=== PATIENT | male | born 1925 | race Asian ===

== ENCOUNTER 2016-05-26 13:24 | Inpatient (IN) | payer MEDICARE, OTHER ==
[~2016-05-26] VITALS: Ht 165.1 cm; Wt 61.6 kg
[2016-05-26] MEDS ORDERED: DORZ210OS OU (13:44)
[2016-05-26] MEDS ORDERED: TEMO15C TP (13:44)
[2016-05-26] MEDS ORDERED: CARB4OS OU (13:44)
[2016-05-26] MEDS ORDERED: MELA3 PO (13:44)
[2016-05-26] MEDS ORDERED: TELM40 PO (13:44)
[2016-05-26] MEDS ORDERED: FINA5TAB41 PO (13:44)
[2016-05-26] MEDS ORDERED: ATOR20TA86 PO (13:44)
[2016-05-26] MEDS ORDERED: LANO3.5O OU (13:44)
[2016-05-26] MEDS ORDERED: XALA2.5OS OU (13:44)
[2016-05-26] MEDS ORDERED: ASCO500 PO (13:44)
[2016-05-26] MEDS ORDERED: DIGO125T PO (13:44)
[2016-05-26] MEDS ORDERED: TAMS0.4C32 PO (13:44)
[2016-05-26] MEDS ORDERED: METF500T4 PO (13:44)
[2016-05-26] MEDS ORDERED: BRIM15OS OU (13:44)
[2016-05-26] MEDS ORDERED: DILT60 PO (13:44)
[2016-05-26] MEDS ORDERED: WARF2 PO (13:44)
[2016-05-26] MEDS ORDERED: VITAD1000 PO (13:44)
[2016-05-26] MEDS ORDERED: [UNRECOGNIZED DRUG - CODE] IARTIC (13:44)
[2016-05-26] MEDS ORDERED: ACET-2247 PO (13:44)
[2016-05-26] MEDS ORDERED: OMEP20 PO (13:44)
[2016-05-26 14:03] LABS: BASOPHILS % (AUTO) 0.3 % (0.0-2.0); EOSINOPHILS % (AUTO) 1.2 % (1.0-6.0); HEMATOCRIT 40.3 % (41-53); HEMOGLOBIN 13.2 g/dL (13.5-17.5); LYMPHOCYTES # (AUTO) 1.8 K/uL (1.0-4.8); LYMPHOCYTES % (AUTO) 21.4 % (22.0-44.0); MEAN CORPUSCULAR HEMOGLOBIN 31.8 pg (26.0-34.0); MEAN CORPUSCULAR HGB CONC 32.7 G/dL (31.0-37.0); MEAN CORPUSCULAR VOLUME 97 fL (80-100); MONOCYTES # (AUTO) 1.5 K/uL (0.1-1.0); MONOCYTES % (AUTO) 17.9 % (2.0-9.0); NEUTROPHILS % (AUTO) 59.2 % (40.0-70.0); PLATELET COUNT (AUTO) 263 K/uL (150-450); RED BLOOD CELL COUNT(AUTO) 4.14 MIL/uL (4.50-5.90); RED CELL DISTRIBUTION WIDTH 13.7 % (11.5-14.5); WHITE BLOOD COUNT (AUTO) 8.5 K/uL (4.5-11.0)
[2016-05-26 14:15] LABS: ANION GAP 8 mmol/L (8-16); CALCIUM, TOTAL 9.1 mg/dL (8.8-10.5); CARBON DIOXIDE 29 mmol/L (22-29); CHLORIDE 103 mmol/L (98-107); CREATININE 1.24 mg/dL (0.60-1.30); GLOMERULAR FILTR. RATE CALC 55 mL/min (>60); POTASSIUM 4.6 mmol/L (3.5-5.1); SODIUM SERUM 140 mmol/L (136-145); UREA NITROGEN, BLOOD 20 mg/dL (7-18)
[2016-05-26 14:16] LABS: INR 2.4 (0.9-1.1); PROTHROMBIN TIME 25.1 SEC (9.4-11.6)
[2016-05-26 14:20] LABS: ALANINE AMINOTRANSFERASE 26 U/L (12-78); ASPARTATE AMINOTRANSFERASE 19 U/L (15-37); BILIRUBIN,TOTAL 0.6 mg/dL (0.1-1.0); CREATINE KINASE, TOTAL 63 U/L (39-308); TOTAL PROTEIN, SERUM 7.5 g/dL (6.4-8.2)
[2016-05-26 14:23] LABS: AMMONIA 20 umol/L (11-32)
[2016-05-26 14:24] LABS: LACTIC ACID 1.7 mmol/L (0.4-2.0)
[2016-05-26 14:30] LABS: TROPONIN I < 0.02 ng/mL (0.00-0.05)
[2016-05-26] MEDS ORDERED: SODIUM CHLORIDE 0.9% 1,000 ML IV ONE (14:45)
[2016-05-26 15:10] LABS: APPEARANCE,URINE CLEAR (CLEAR); GLUCOSE, URINE (UA) NEGATIVE (NEGATIVE); KETONES,URINE TRACE mg/dL (NEGATIVE); LEUKOCYTE ESTERASE ,URINE TRACE (NEGATIVE); OCCULT BLOOD,URINE NEGATIVE (NEGATIVE); PROTEIN,URINE POS 1+ (NEGATIVE)
[2016-05-26 15:11] LABS: ADD UA MICROSCOPIC YES
[2016-05-26 15:17] LABS: RBC,URINE 0-2 /HPF (0-2); SQUAMOUS EPITHELIAL CELL,UR Few /LPF (None Seen)
[2016-05-26] MEDS ORDERED: 0.9% SODIUM CHLORIDE 10 ML SYRINGE IVP PRN (17:15)
[2016-05-26] MEDS ORDERED: ONDANSETRON HCL 4 MG/2 ML VIAL IVP PRN (17:15)
[2016-05-26] MEDS ORDERED: ACETAMINOPHEN 325 MG TABLET PO PRN (17:15)
[2016-05-26] MEDS ORDERED: MELA5TAB3 PO (17:15)
[2016-05-26 19:59] VITALS: BP 130/90
[2016-05-27 00:08] VITALS: BP 134/68
[2016-05-27] MEDS ORDERED: OxyCODONE HCL/ACETAMINOPHEN 5-325 MG TABLET PO PRN ×2 (05:00)
[2016-05-27] MEDS ORDERED: ONDANSETRON HCL 4 MG/2 ML VIAL IVP PRN (05:00)
[2016-05-27] MEDS ORDERED: MAGNESIUM HYDROXIDE SUSPENSION 30 ML UDCUP PO PRN (05:00)
[2016-05-27] MEDS ORDERED: 0.9% SODIUM CHLORIDE 10 ML SYRINGE IVP PRN (05:00)
[2016-05-27] MEDS ORDERED: ACETAMINOPHEN 325 MG TABLET PO PRN ×2 (05:00)
[2016-05-27 05:16] VITALS: BP 130/74
[2016-05-27] MEDS: SODIUM CHLORIDE 0.9% 1,000 ML IV SCH ×2 (06:12→15:16)
[2016-05-27 08:12] VITALS: BP 144/78
[2016-05-27] MEDS ORDERED: OMEPRAZOLE 20 MG CAPSULE PO SCH (09:00)
[2016-05-27] MEDS ORDERED: CARBOXYMETHYLCELLULOSE SODIUM 0.4 ML OPHTHALMIC SOLUTION [PF] OU SCH (09:00)
[2016-05-27] MEDS ORDERED: DIGOXIN 125 MCG TABLET PO SCH (09:00)
[2016-05-27] MEDS ORDERED: PANTOPRAZOLE SODIUM 40 MG/VIAL IVP SCH (09:00)
[2016-05-27] MEDS: DOCUSATE SODIUM 100 MG CAPSULE PO SCH ×3 (09:00→21:14)
[2016-05-27] MEDS ORDERED: TELMISARTAN 40 MG TABLET PO SCH ×2 (09:00)
[2016-05-27] MEDS ORDERED: CLOBETASOL 0.05% 15 GM CREAM TP SCH (09:00)
[2016-05-27] MEDS ORDERED: CHOLECALCIFEROL (VIT D3) 1,000 UNITS TABLET PO SCH (09:00)
[2016-05-27] MEDS ORDERED: FINASTERIDE 5 MG TABLET PO SCH (09:00)
[2016-05-27] MEDS ORDERED: ASCORBIC ACID 500 MG TABLET PO SCH (09:00)
[2016-05-27] MEDS: MetFORMIN HCL 500 MG TABLET PO SCH ×2 (09:39→18:03)
[2016-05-27] MEDS: BRIMONIDINE TARTRATE 0.1% 5 ML OPHTHALMIC SOLUTION OU SCH ×2 (09:40→21:14)
[2016-05-27] MEDS: DORZOLAMIDE HCL 2% 10 ML OPHTHALMIC SOLUTION OU SCH ×4 (09:41→21:14)
[2016-05-27] MEDS: DILTIAZEM HCL 60 MG TABLET PO SCH ×4 (09:46→21:14)
[2016-05-27 09:51] LABS: PROTHROMBIN TIME 21.4 SEC (9.4-11.6)
[2016-05-27 11:10] VITALS: BP 109/55
[2016-05-27 15:20] VITALS: BP 110/56
[2016-05-27] MEDS ORDERED: WARFARIN SODIUM 2 MG TABLET PO SCH (17:00)
[2016-05-27 19:53] VITALS: BP 139/69
[2016-05-27] MEDS ORDERED: CARBOXYMETHYLCELLULOSE SODIUM 0.4 ML OPHTHALMIC SOLUTION [PF] OU PRN (20:00)
[2016-05-27] MEDS ORDERED: TAMSULOSIN HCL 0.4 MG CAPSULE PO SCH (21:00)
[2016-05-27] MEDS ORDERED: ATORVASTATIN CALCIUM 20 MG TABLET PO SCH (21:00)
[2016-05-27] MEDS ORDERED: LATANOPROST 0.005% 2.5 ML OPHTHALMIC SOLUTION OU SCH (21:00)
== END 2016-05-27 22:15 | disposition left against medical advice (07) | DRG 312 ==
LOC: EMS 13:27 → 5S 17:27
PROVIDERS: ADMIT Internal Medicine; ATTEND Internal Medicine
DX: R55 Syncope and collapse (principal); I48.0 Paroxysmal atrial fibrillation; E11.9 Type 2 diabetes mellitus without complications; E78.00 Pure hypercholesterolemia, unspecified; E86.0 Dehydration; I25.10 Atherosclerotic heart disease of native coronary artery without angina pectoris; I11.0 Hypertensive heart disease with heart failure; K21.9 Gastro-esophageal reflux disease without esophagitis; I49.9 Cardiac arrhythmia, unspecified; I50.9 Heart failure, unspecified; Z79.899 Other long term (current) drug therapy; Z79.01 Long term (current) use of anticoagulants; Z79.84 Long term (current) use of oral hypoglycemic drugs; Z79.1 Long term (current) use of non-steroidal anti-inflammatories (NSAID); Z79.82 Long term (current) use of aspirin; Z88.8 Allergy status to other drugs, medicaments and biological substances; Z91.041 Radiographic dye allergy status; I25.2 Old myocardial infarction; Z95.0 Presence of cardiac pacemaker; Z98.890 Other specified postprocedural states; Z86.73 Personal history of transient ischemic attack (TIA), and cerebral infarction without residual deficits
CPT/HCPCS: 70450; 83605; 87040; 87081; 93005; 93306; 93880; 96360; 96361; 99285; C9113; J7030